=== PATIENT | male | born 1980 | race Two or more races ===

== ENCOUNTER 2016-12-22 02:17 | Emergency (ER) | payer SELFPAY ==
[~2016-12-22] VITALS: Ht 188 cm; Wt 104.0 kg
[2016-12-22] MEDS ORDERED: LIDOCAINE HCL 1% 20ML VIAL (Pyxis) INJ INFIL ONE (03:15)
[2016-12-22] MEDS ORDERED: TETANUS, DIPHTHERIA, PERTUSSIS VAC/PF 0.5ML (>7YR OLD) IM ONE (03:15)
[2016-12-22] MEDS ORDERED: BACITRACIN ZINC OINT UDPKT TOP ONE (04:15)
[2016-12-22 04:18] VITALS: BP 138/83
== END 2016-12-22 04:34 | disposition home or self-care (01) ==
LOC: ER 04:25
DX: S61.411A Laceration without foreign body of right hand, initial encounter (principal); E11.9 Type 2 diabetes mellitus without complications; Z87.19 Personal history of other diseases of the digestive system; W45.8XXA Other foreign body or object entering through skin, initial encounter; Y93.89 Activity, other specified; Y92.89 Other specified places as the place of occurrence of the external cause; Y99.8 Other external cause status
CPT/HCPCS: 12001; 90471; 90715; 99283; A4217; J3490; Z7610